=== PATIENT | male | born 1955 | race Caucasian/White ===

== ENCOUNTER → 2022-12-11 | Day surgery (SDC) | payer MEDICARE ==
[~2022-12-11] MED LIST: GLIMEPIRIDE4 MG PO; GLUCOPHAGE PO; HCTZ 25MG25 MG PO; NORCO 325 MG-51 TA1 PO; NORVASC 10MG10 MG PO; ROSUVASTATIN CAL5 MG PO; ZESTRIL40 MG PO
== END ==
LOC: MSO 07:17
DX: Z12.11 Encounter for screening for malignant neoplasm of colon (principal); K63.5 Polyp of colon; D12.5 Benign neoplasm of sigmoid colon; K57.30 Diverticulosis of large intestine without perforation or abscess without bleeding
CPT/HCPCS: 00811; J2704; J7120